=== PATIENT | male | born 1980 ===

== ENCOUNTER → 2017-03-18 | Outpatient (REF) | LOC: ZLAB.WCH 16:35 | DX: Z01.89 Encounter for other specified special examinations (principal) ==

== ENCOUNTER 2022-07-11 10:47 | Emergency (ER) | payer SELFPAY ==
[~2022-07-11] VITALS: Ht 182.9 cm; Wt 97.7 kg
[2022-07-11 11:00] VITALS: TEMP 98
[2022-07-11 12:57] LABS: BASO % 0.8 % (0.0-2.0); EOS # 0.1 K/mm3 (0.0-0.7); EOS % 1.2 % (0.0-4.0); GRAN # 2.6 K/mm3 (1.4-6.5); GRAN % 50.4 % (42.2-75.2); HEMATOCRIT 46.6 % (42.0-52.0); HEMOGLOBIN 16.3 g/dl (13.5-18.0); MEAN CELL VOLUME 89 fl (80.0-100.0); MEAN CORPUSCULAR HEMOGLOBIN 31 pg (27-31); MEAN CORPUSCULAR HGB CONC 35 g/dl (33.0-37.0); MEAN PLATELET VOLUME 9.9 fl (7.4-10.4); MONO # 0.5 K/mm3 (0.1-0.6); MONO % 9.2 % (1.7-9.3); PLATELET COUNT 274 K/mm3 (130-400); RED BLOOD COUNT 5.21 M/mm3 (4.20-5.60); REDCELL DISTRIBUTION WIDTH-CV 12.7 % (11.5-14.5)
[2022-07-11 13:12] LABS: CALCIUM 9.6 mg/dL (8.4-10.2); CREATININE, serum 1.1 mg/dL (0.72-1.25); POTASSIUM 4.4 mmol/L (3.5-4.5)
[2022-07-11] MEDS ORDERED: AMOXICILLIN875 MG PO (14:24)
[2022-07-11] MEDS ORDERED: NORCO 325 MG-51 TAB PO (14:25)
[2022-07-11 15:10] VITALS: BP 144/79; PULSE 77
== END 2022-07-11 15:10 | disposition home or self-care (01) ==
LOC: COL.ER 10:47
PROVIDERS: Physician Assistant
DX: H92.02 Otalgia, left ear (principal); Z87.891 Personal history of nicotine dependence; Z28.310 Unvaccinated for COVID-19
CPT/HCPCS: J1885; Q9967